=== PATIENT | male | born 1995 | race African-American/Black ===

== ENCOUNTER → 2019-10-24 | Outpatient (CLI) | payer OTHER ==
--- NOTE | 2019-10-24 09:54 | REP ---
DIGITAL DIAGNOSTIC BILATERAL MAMMOGRAPHY WITH CAD, AND BILATERAL FOCUSED BREAST SONOGRAPHY: HISTORY: Right breast lump times 3 months. Subareolar. 3-4 months history of 2 cm mass with minimal nipple discharge. MAMMOGRAPHIC FINDINGS: A skin marker is affixed to the skin at the site of the palpable lump in the subareolar region. Craniocaudal and mediolateral oblique views are obtained bilaterally. There is a fairly large area of flame-shaped hyperdense subareolar breast parenchyma beneath the right nipple consistent with unilateral right-sided gynecomastia. No mass-like features are seen. No skin thickening, microcalcification, or spiculation is observed. No abnormalities noted on the left. SONOGRAPHIC FINDINGS: Focused bilateral subareolar sonography shows no abnormality on the left. On the right, there is a moderate amount of hypoechoic breast tissue centered beneath the nipple consistent with gynecomastia. This is homogeneous. No acoustic shadowing or architectural distortion is seen. IMPRESSION: BIRADS category 2 benign findings. Unilateral asymmetric right breast gynecomastia. Clinical followup is advised. This mammogram was interpreted with the aid of an FDA-approved computer-aided detection system. The patient states she had a clinical breast exam in September . The patient letter being requested is male letter M2.
== END ==
LOC: M WHC 07:59
PROVIDERS: ATTEND Physician Assistant
DX: N63.10 Unspecified lump in the right breast, unspecified quadrant (principal); N64.52 Nipple discharge

== ENCOUNTER 2021-05-17 21:10 | Emergency (ER) | payer OTHER ==
[~2021-05-17] VITALS: Ht 180.3 cm; Wt 77.3 kg
[2021-05-17 21:14] VITALS: BP 132/60
--- NOTE | 2021-05-17 23:16 | REPVR ---
PROCEDURE INFORMATION: Exam: XR Right Ankle Exam date and time: 05/17/2021 10:13 PM Age: 25 years old Clinical indication: Pain; Ankle; Right; Additional info: Injured playing soccer TECHNIQUE: Imaging protocol: XR Right ankle. Views: 3 or more views. COMPARISON: No relevant prior studies available. FINDINGS: Bones/joints: Normal osseous alignment. No acute fracture. No asymmetric ankle mortise widening. Fifth metatarsal base is intact. No osteochondral lesion of the talar dome. No evidence of osseous tarsal coalition. No concerning bone lesion. Joint spaces are well maintained. Soft tissues: Diffuse soft tissue swelling is present around the ankle. IMPRESSION: Diffuse ankle soft tissue swelling, with no evidence of acute fracture. Electronically signed by: Des Escobar On 05/17/2021 23:15:41 PM
[2021-05-18] MEDS ORDERED: ACETAMINOPHEN 500 MG TAB PO ONE (07:20)
== END 2021-05-18 08:37 | disposition home or self-care (01) ==
LOC: M ED 21:10
DX: S93.491A Sprain of other ligament of right ankle, initial encounter (principal); X50.9XXA Other and unspecified overexertion or strenuous movements or postures, initial encounter; Y92.830 Public park as the place of occurrence of the external cause

== ENCOUNTER 2021-10-18 09:11 | Emergency (ER) | payer OTHER ==
[~2021-10-18] VITALS: Ht 180.3 cm; Wt 79.5 kg
[2021-10-18 09:12] VITALS: BP 127/80
[2021-10-18] MEDS ORDERED: IBUPROFEN 800 MG TAB PO ONE (09:40)
== END 2021-10-18 10:29 | disposition home or self-care (01) ==
LOC: M ED 09:11
DX: S63.501A Unspecified sprain of right wrist, initial encounter (principal); V49.49XA Driver injured in collision with other motor vehicles in traffic accident, initial encounter; Y92.410 Unspecified street and highway as the place of occurrence of the external cause

== ENCOUNTER 2022-09-15 18:24 | Emergency (ER) | payer OTHER ==
[~2022-09-15] VITALS: Ht 177.8 cm; Wt 80.6 kg
[2022-09-15] MEDS ORDERED: CYCLOBENZAPRINE 10MG TABLET PO ONE (21:15)
[2022-09-15] MEDS ORDERED: NAPR-837 PO (21:16)
[2022-09-15 21:41] VITALS: BP 114/73
== END 2022-09-15 21:43 | disposition home or self-care (01) ==
LOC: M ED 21:28
DX: Z04.1 Encounter for examination and observation following transport accident (principal); S39.012A Strain of muscle, fascia and tendon of lower back, initial encounter; S16.1XXA Strain of muscle, fascia and tendon at neck level, initial encounter; V43.52XA Car driver injured in collision with other type car in traffic accident, initial encounter; Y92.410 Unspecified street and highway as the place of occurrence of the external cause; Y93.89 Activity, other specified; Y99.8 Other external cause status; Z98.890 Other specified postprocedural states